=== PATIENT | male | born 1940 | race African-American/Black ===

== ENCOUNTER 2019-12-28 06:03 | Inpatient (IN) | payer OTHER ==
[~2019-12-28] VITALS: Ht 193 cm; Wt 100.2 kg
[2019-12-28] MEDS ORDERED: SODIUM CHLORIDE 0.9% 1,000 ML IV ONE (06:41)
[2019-12-28 07:04] LABS: BG BASE EXCESS -5.9 mmol/L (-2.0-2.0); BG CARBOXYHEMOGLOBIN 1.5 % (0.5-1.5); BG DEOXYHEMOGLOBIN 5.6 % (0.0-5.0); BG FRACTION INSPIRED OXYGEN 21; BG HCO3 ACT 19.1 mmol/L (22.0-26.0); BG METHEMOGLOBIN 0.2 % (0.0-1.5); BG OXYGEN SATURATION 94.3 % (92.0-98.5); BG OXYHEMOGLOBIN 92.7 % (94.0-97.0); BG PCO2 34.8 mmHg (35.0-45.0); BG PH 7.357 (7.350-7.450); BG PO2 80.7 mmHg (75.0-100.0); BG SAMPLE SITE RIGHT BRACHIAL; BG TOTAL HEMOGLOBIN 5.1 g/dL (12.0-18.0); BG VENT MODE ROOM AIR
[2019-12-28 08:14] LABS: BASOPHILS % 0.3 % (0.0-2.0); LYMPHOCYTES % 14.8 % (20.0-50.0); MEAN CORPUSCULAR HEMOGLOBIN 24.5 pg (28.0-32.0); MEAN CORPUSCULAR VOLUME 81.9 fL (80.0-94.0); MEAN PLATELET VOLUME 8.8 fl (7.4-10.4); MONOCYTES % 7.3 % (2.0-8.0); NEUTROPHILS % 77.6 % (40.0-76.0); PLATELET 240 x1000/uL (130-400); RED BLOOD CELL COUNT 1.92 mill/uL (4.7-6.1); RED CELL DISTRIBUTION WIDTH 17.5 % (11.6-14.6)
[2019-12-28 08:21] LABS: CHLORIDE 112 mEq/L (98-107)
[2019-12-28 08:23] LABS: HEMATOCRIT. 15.8 % (42.0-52.0); HEMOGLOBIN. 4.7 g/dL (14.0-18.0)
[2019-12-28 08:28] LABS: BETA HYDROXYBUTYRATE 0.2 mMol/L (0.0-0.3)
[2019-12-28 09:13] LABS: PROTHROMBIN TIME 10.8 sec (9.6-11.0)
[2019-12-28] MEDS ORDERED: CLONIDINE 0.1MG TABLET PO PRN (19:15)
[2019-12-28] MEDS ORDERED: ONDANSETRON HCL 4MG/2ML INJ IV PRN (19:15)
[2019-12-28] MEDS ORDERED: ACETAMINOPHEN 325MG TABLET PO PRN (19:15)
[2019-12-28] MEDS ORDERED: ZOLPIDEM TARTRATE 5MG TABLET PO PRN (19:15)
[2019-12-28] MEDS: PANTOPRAZOLE 40MG DR TABLET PO SCH (19:36)
[2019-12-28 20:05] LABS: FERRITIN 5 ng/mL (22-322)
[2019-12-28 20:16] LABS: VITAMIN B12 SERUM 190 pg/mL (211-911)
[2019-12-28 22:00] VITALS: BP 137/67
[2019-12-28] MEDS ORDERED: INSULIN GLARGINE UD 100 UNITS/ML SYR SUBCUT SCH (22:00)
[2019-12-28] MEDS: SODIUM CHLORIDE 0.9% INJ 3ML FLUSH IVF SCH (22:51)
[2019-12-28] MEDS ORDERED: DEXTROSE 50% WATER 50ML SYRINGE IV PRN (23:00)
[2019-12-28] MEDS ORDERED: DORZ10DR9 RIGHTEYE (23:35)
[2019-12-28] MEDS ORDERED: BRIM.2 RIGHTEYE (23:35)
[2019-12-28] MEDS ORDERED: PIOG15TA68 PO (23:35)
[2019-12-28] MEDS ORDERED: LISI40TA4 PO (23:35)
[2019-12-28] MEDS ORDERED: LATA2.5D2 EACHEYE (23:35)
[2019-12-28] MEDS ORDERED: METF-416 PO (23:35)
[2019-12-28] MEDS ORDERED: AMLO10TA4 PO (23:35)
[2019-12-28 23:42] LABS: HEMATOCRIT 20.5 % (42.0-52.0); HEMOGLOBIN 6.9 g/dL (14.0-18.0)
[2019-12-29] VITALS (14 sets, daily range): BP systolic 126–155; BP diastolic 51–111
[2019-12-29] MEDS: BLOOD SUGAR DIAGNOSTIC STRIP TEST SCH ×4 (06:02→21:00)
[2019-12-29] MEDS: SODIUM CHLORIDE 0.9% INJ 3ML FLUSH IVF SCH ×3 (06:02→20:25)
[2019-12-29] MEDS: PANTOPRAZOLE 40MG DR TABLET PO SCH ×2 (06:05→21:20)
[2019-12-29] MEDS: INSULIN LISPRO 100 UNITS/ML SUBCUT SCH ×4 (06:17→21:00)
[2019-12-29 08:05] LABS: BASOPHILS % 0.6 % (0.0-2.0); EOSINOPHILS % 0.3 % (0.0-5.0); HEMATOCRIT. 21.6 % (42.0-52.0); HEMOGLOBIN. 7.1 g/dL (14.0-18.0); LYMPHOCYTES % 27.6 % (20.0-50.0); MEAN CORPUSCULAR HEMOGLOBIN 27.3 pg (28.0-32.0); MEAN CORPUSCULAR VOLUME 83.4 fL (80.0-94.0); MEAN PLATELET VOLUME 9.5 fl (7.4-10.4); MONOCYTES % 6.9 % (2.0-8.0); NEUTROPHILS % 64.6 % (40.0-76.0); PLATELET 181 x1000/uL (130-400); RED BLOOD CELL COUNT 2.59 mill/uL (4.7-6.1); RED CELL DISTRIBUTION WIDTH 16.6 % (11.6-14.6)
[2019-12-29 08:32] LABS: CHLORIDE 113 mEq/L (98-107)
[2019-12-29 09:17] LABS: PROTHROMBIN TIME 10.8 sec (9.6-11.0)
[2019-12-29] MEDS: IRON SUCROSE COMPLEX 100 MG/5 ML ML IV SCH (20:20)
[2019-12-29] MEDS: AMLODIPINE 2.5MG TABLET PO SCH (20:22)
[2019-12-30] VITALS: BP 130/68
[2019-12-30] MEDS ORDERED: INSULIN GLARGINE UD 100 UNITS/ML SYR SUBCUT NR
[2019-12-30 01:31] LABS: HEMATOCRIT 23.1 % (42.0-52.0); HEMOGLOBIN 7.9 g/dL (14.0-18.0)
[2019-12-30 04:00] VITALS: BP 126/62
[2019-12-30] MEDS: SODIUM CHLORIDE 0.9% INJ 3ML FLUSH IVF SCH ×3 (06:51→21:03)
[2019-12-30] MEDS: INSULIN LISPRO 100 UNITS/ML SUBCUT SCH ×4 (06:53→21:02)
[2019-12-30] MEDS: BLOOD SUGAR DIAGNOSTIC STRIP TEST SCH ×4 (06:53→21:03)
[2019-12-30 06:58] LABS: BASOPHILS % 0.4 % (0.0-2.0); EOSINOPHILS % 0.6 % (0.0-5.0); HEMATOCRIT. 23.6 % (42.0-52.0); HEMOGLOBIN. 7.9 g/dL (14.0-18.0); LYMPHOCYTES % 20.1 % (20.0-50.0); MEAN CORPUSCULAR HEMOGLOBIN 28.2 pg (28.0-32.0); MEAN CORPUSCULAR VOLUME 83.8 fL (80.0-94.0); MEAN PLATELET VOLUME 8.7 fl (7.4-10.4); MONOCYTES % 8.9 % (2.0-8.0); PLATELET 191 x1000/uL (130-400); RED BLOOD CELL COUNT 2.81 mill/uL (4.7-6.1); RED CELL DISTRIBUTION WIDTH 16.8 % (11.6-14.6)
[2019-12-30 07:31] LABS: CHLORIDE 109 mEq/L (98-107)
[2019-12-30 08:00] VITALS: BP 137/54
[2019-12-30] MEDS: AMLODIPINE 2.5MG TABLET PO SCH ×2 (08:47→21:02)
[2019-12-30 12:00] VITALS: BP 150/65
[2019-12-30 16:00] VITALS: BP 136/65
[2019-12-30 20:00] VITALS: BP 136/64
[2019-12-30] MEDS: IRON SUCROSE COMPLEX 100 MG/5 ML ML IV SCH (21:01)
[2019-12-30] MEDS: PANTOPRAZOLE 40MG DR TABLET PO SCH (21:02)
[2019-12-30] MEDS: INSULIN GLARGINE UD 100 UNITS/ML SYR SUBCUT SCH (21:43)
[2019-12-31] VITALS: BP 151/71
[2019-12-31 04:00] VITALS: BP 129/62
[2019-12-31] MEDS: SODIUM CHLORIDE 0.9% INJ 3ML FLUSH IVF SCH ×3 (05:39→20:44)
[2019-12-31] MEDS: BLOOD SUGAR DIAGNOSTIC STRIP TEST SCH ×4 (06:13→20:44)
[2019-12-31] MEDS: INSULIN LISPRO 100 UNITS/ML SUBCUT SCH ×4 (06:13→21:32)
[2019-12-31 08:00] VITALS: BP 132/64
[2019-12-31 08:52] LABS: BASOPHILS % 0.4 % (0.0-2.0); EOSINOPHILS % 1.4 % (0.0-5.0); HEMATOCRIT. 23.4 % (42.0-52.0); HEMOGLOBIN. 7.8 g/dL (14.0-18.0); LYMPHOCYTES % 20.5 % (20.0-50.0); MEAN CORPUSCULAR VOLUME 84.1 fL (80.0-94.0); MEAN PLATELET VOLUME 8.9 fl (7.4-10.4); MONOCYTES % 8.7 % (2.0-8.0); PLATELET 215 x1000/uL (130-400); RED BLOOD CELL COUNT 2.79 mill/uL (4.7-6.1); RED CELL DISTRIBUTION WIDTH 16.5 % (11.6-14.6)
[2019-12-31 09:07] LABS: CHLORIDE 108 mEq/L (98-107)
[2019-12-31] MEDS: AMLODIPINE 2.5MG TABLET PO SCH ×2 (09:24→20:44)
[2019-12-31 12:00] VITALS: BP 139/58
[2019-12-31 16:00] VITALS: BP 142/64
[2019-12-31] MEDS ORDERED: SORBITOL 70% SOLN 30ML PO NR ×2 (16:15→20:00)
[2019-12-31 20:00] VITALS: BP 140/71
[2019-12-31] MEDS: IRON SUCROSE COMPLEX 100 MG/5 ML ML IV SCH (20:44)
[2019-12-31] MEDS: PANTOPRAZOLE 40MG DR TABLET PO SCH (20:44)
[2019-12-31] MEDS: INSULIN GLARGINE UD 100 UNITS/ML SYR SUBCUT SCH (21:35)
[2020-01-01] VITALS (7 sets, daily range): BP systolic 115–155; BP diastolic 61–81
[2020-01-01] MEDS: BLOOD SUGAR DIAGNOSTIC STRIP TEST SCH ×4 (05:44→21:00)
[2020-01-01] MEDS: SODIUM CHLORIDE 0.9% INJ 3ML FLUSH IVF SCH ×3 (05:44→22:45)
[2020-01-01 06:23] LABS: BASOPHILS % 0.5 % (0.0-2.0); EOSINOPHILS % 0.6 % (0.0-5.0); HEMATOCRIT. 27.9 % (42.0-52.0); HEMOGLOBIN. 9.3 g/dL (14.0-18.0); LYMPHOCYTES % 13.9 % (20.0-50.0); MEAN CORPUSCULAR HEMOGLOBIN 28.2 pg (28.0-32.0); MEAN PLATELET VOLUME 8.1 fl (7.4-10.4); MONOCYTES % 8.6 % (2.0-8.0); NEUTROPHILS % 76.4 % (40.0-76.0); PLATELET 277 x1000/uL (130-400); RED BLOOD CELL COUNT 3.28 mill/uL (4.7-6.1); RED CELL DISTRIBUTION WIDTH 16.3 % (11.6-14.6)
[2020-01-01] MEDS: INSULIN LISPRO 100 UNITS/ML SUBCUT SCH ×4 (06:44→22:47)
[2020-01-01 07:22] LABS: CHLORIDE 110 mEq/L (98-107)
[2020-01-01] MEDS: AMLODIPINE 2.5MG TABLET PO SCH ×2 (09:18→22:45)
[2020-01-01] MEDS ORDERED: MIDAZOLAM HCL 5 MG/5 ML VIAL ONE (12:46)
[2020-01-01] MEDS ORDERED: FENTANYL CITRATE/PF 50MCG/ML 2ML VIAL ONE (12:47)
[2020-01-01] MEDS ORDERED: SIMETHICONE 40 MG/0.6 ML 30ML ONE (13:07)
[2020-01-01] MEDS: CYANOCOBALAMIN 1000MCG/ML VIAL IM SCH (14:59)
[2020-01-01] MEDS: SUCRALFATE 1G TABLET PO SCH ×2 (17:21→22:44)
[2020-01-01] MEDS: PANTOPRAZOLE 40MG DR TABLET PO SCH (22:44)
[2020-01-01] MEDS: INSULIN GLARGINE UD 100 UNITS/ML SYR SUBCUT SCH (22:48)
[2020-01-02] VITALS: BP 139/67
[2020-01-02 04:00] VITALS: BP 133/59
[2020-01-02 06:21] LABS: BASOPHILS % 0.7 % (0.0-2.0); HEMATOCRIT. 27.6 % (42.0-52.0); HEMOGLOBIN. 8.9 g/dL (14.0-18.0); LYMPHOCYTES % 23.2 % (20.0-50.0); MEAN CORPUSCULAR HEMOGLOBIN 27.9 pg (28.0-32.0); MEAN CORPUSCULAR VOLUME 86.1 fL (80.0-94.0); MEAN PLATELET VOLUME 8.3 fl (7.4-10.4); MONOCYTES % 8.8 % (2.0-8.0); NEUTROPHILS % 65.3 % (40.0-76.0); PLATELET 268 x1000/uL (130-400); RED CELL DISTRIBUTION WIDTH 16.6 % (11.6-14.6)
[2020-01-02] MEDS: SODIUM CHLORIDE 0.9% INJ 3ML FLUSH IVF SCH ×2 (06:27→13:31)
[2020-01-02] MEDS: BLOOD SUGAR DIAGNOSTIC STRIP TEST SCH ×3 (06:28→16:45)
[2020-01-02] MEDS: INSULIN LISPRO 100 UNITS/ML SUBCUT SCH ×3 (06:28→18:21)
[2020-01-02] MEDS: SUCRALFATE 1G TABLET PO SCH ×3 (06:30→18:20)
[2020-01-02 06:57] LABS: CHLORIDE 109 mEq/L (98-107)
[2020-01-02 08:00] VITALS: BP 140/82
[2020-01-02] MEDS: PANTOPRAZOLE 40MG DR TABLET PO SCH (08:35)
[2020-01-02] MEDS: CYANOCOBALAMIN 1000MCG/ML VIAL IM SCH (08:35)
[2020-01-02] MEDS: AMLODIPINE 2.5MG TABLET PO SCH (08:35)
[2020-01-02 10:09] LABS: FOLATE HEMATOCRIT 26.6 % (37.5-51.0)
[2020-01-02 12:00] VITALS: BP 121/67
[2020-01-02 15:09] LABS: FOLATE RBC 1233 ng/mL (>498)
[2020-01-02 16:00] VITALS: BP 141/60
[2020-01-02 17:40] VITALS: BP 141/60
== END 2020-01-02 19:58 | disposition home or self-care (01) | DRG 811 ==
LOC: ER 06:28 → 5WST 08:54 → ENRESERV 20:51
PROVIDERS: ADMIT Ophthalmology; ATTEND Ophthalmology
PROC: 30233N1 Transfusion of Nonautologous Red Blood Cells into Peripheral Vein, Percutaneous Approach (ICD-10-PCS; principal; 2019-12-28)
PROC: 0DB78ZX Excision of Stomach, Pylorus, Via Natural or Artificial Opening Endoscopic, Diagnostic (ICD-10-PCS; 2020-01-01)
PROC: 0DJD8ZZ Inspection of Lower Intestinal Tract, Via Natural or Artificial Opening Endoscopic (ICD-10-PCS; 2020-01-01)
DX: D50.9 Iron deficiency anemia, unspecified (principal); K29.71 Gastritis, unspecified, with bleeding; K25.4 Chronic or unspecified gastric ulcer with hemorrhage; K29.81 Duodenitis with bleeding; K57.91 Diverticulosis of intestine, part unspecified, without perforation or abscess with bleeding; E87.2 Acidosis; R19.5 Other fecal abnormalities; E11.65 Type 2 diabetes mellitus with hyperglycemia; I10 Essential (primary) hypertension; R00.0 Tachycardia, unspecified; R09.02 Hypoxemia; E78.5 Hyperlipidemia, unspecified; K82.9 Disease of gallbladder, unspecified; E78.00 Pure hypercholesterolemia, unspecified; G47.33 Obstructive sleep apnea (adult) (pediatric); N40.0 Benign prostatic hyperplasia without lower urinary tract symptoms; E66.9 Obesity, unspecified; Z90.49 Acquired absence of other specified parts of digestive tract; Z82.49 Family history of ischemic heart disease and other diseases of the circulatory system; Z82.3 Family history of stroke; Z68.26 Body mass index [BMI] 26.0-26.9, adult; Z87.11 Personal history of peptic ulcer disease
CPT/HCPCS: 36415; 36600; 80048; 80053; 82010; 82270; 82375; 82607; 82728; 82747; 82805; 82962; 83036; 83540; 83550; 84155; 84165; 84443; 84484; 85014; 85018; 85025; 85384; 86850; 86900; 86920; 88305; 88312; 88313; 93005; 93306; 99291; J1815; J2250; J3010; J3420; J7030; P9016